=== PATIENT | female | born 1960 | race Hispanic/Latino ===

== ENCOUNTER 2022-09-05 13:23 | Inpatient (IN) | payer OTHER ==
[~2022-09-05] VITALS: Ht 149.9 cm; Wt 99.8 kg
[2022-09-05 15:38] LABS: CLARITY,URINE CLEAR (CLEAR); COLOR,URINE YELLOW (YELLOW); KETONES,URINE NEGATIVE (NEGATIVE); LEUKOCYTE ESTERASE ,URINE NEGATIVE (NEGATIVE); NITRITE,URINE NEGATIVE (NEGATIVE); PROTEIN,URINE DIPSTICK NEGATIVE (NEGATIVE); URINE UROBILINOGEN 0.2 mg/dL (0.2 - 1)
[2022-09-05 15:39] LABS: BACTERIA,URINE FEW /HPF; EPITHELIAL CELLS,URINE FEW /LPF; RBC,URINE 0-5 /HPF (0-5); WBC,URINE (MAN) 0-5 /HPF (0-5)
[2022-09-05 16:03] LABS: BASOPHILS % 1.1 % (0.0-1.0); EOSINOPHILS # (AUTO) 0.1 (0.0-0.4); EOSINOPHILS % 5.3 % (0.0-6.0); HEMATOCRIT 25.1 % (34.2-44.1); HEMOGLOBIN 7.9 g/dL (12.0-16.0); LYMPHOCYTES # (AUTO) 0.8 (1.0-3.2); LYMPHOCYTES % 31.3 % (18.0-39.1); MEAN CORPUSCULAR HEMOGLOBIN 28.6 pg (28-32); MEAN CORPUSCULAR HGB CONC 31.5 g/dL (31-35); MEAN CORPUSCULAR VOLUME 90.9 fL (81-99); MONOCYTES # (AUTO) 0.3 (0.2-0.8); MONOCYTES % 12.2 % (4.4-11.3); NEUTROPHILS # (AUTO) 1.3 (2.1-6.9); NEUTROPHILS % 49.7 % (38.7-80.0); PLATELET COUNT 141 x10e3/uL (140-360); RED BLOOD COUNT 2.76 x10e6/uL (3.6-5.1); RED CELL DISTRIBUTION WIDTH 17.6 % (11.7-14.4)
[2022-09-05 16:15] LABS: INR 1.25; PROTHROMBIN TIME 16.5 seconds (11.9-14.5)
[2022-09-05 16:17] LABS: PARTIAL THROMBOPLASTIN TIME 45.8 seconds (23.8-35.5)
[2022-09-05 16:25] LABS: ALBUMIN 3.3 g/dL (3.5-5.0); ALBUMIN/GLOBULIN RATIO 0.7 (0.8-2.0); CALCIUM 9.5 mg/dL (8.4-10.2); CREATININE, SERUM 0.75 mg/dL (0.57-1.11)
[2022-09-05] MEDS ORDERED: SODIUM CHLORIDE FLUSH 10 ML SYR INJ PRN (17:45)
[2022-09-05 18:44] VITALS: PULSE 78; RESP 20; O2SAT 99
[2022-09-06] VITALS (12 sets, daily range): BP systolic 120–151; BP diastolic 57–75; PULSE 74–114; RESP 18–20; TEMP 97.5–98.3; O2SAT 96–100
[2022-09-06] MEDS ORDERED: DEXTROSE 50% SYRINGE 50 ML IV PRN (00:15)
[2022-09-06] MEDS ORDERED: DOCUSATE SODIUM 100 MG CAP PO PRN (00:15)
[2022-09-06] MEDS ORDERED: BENZONATATE 100 MG CAP PO PRN (00:15)
[2022-09-06] MEDS ORDERED: DIPHENHYDRAMINE HCL 25 MG CAP PO PRN (00:15)
[2022-09-06] MEDS ORDERED: ALBUTEROL/IPRATROPIUM 3 ML NEB NEB PRN (00:15)
[2022-09-06] MEDS ORDERED: LIDOCAINE 4% PATCH TP PRN (00:15)
[2022-09-06] MEDS ORDERED: MELATONIN 5 MG TABLET PO PRN (00:15)
[2022-09-06] MEDS ORDERED: HYDRALAZINE HCL 20 MG/ML VIAL IV PRN (00:15)
[2022-09-06] MEDS ORDERED: SIMETHICONE 80 MG CHEW PO PRN (00:15)
[2022-09-06] MEDS ORDERED: ONDANSETRON HCL INJ 2MG/ML 2ML 2 MG/ML VIAL IV PRN (00:15)
[2022-09-06] MEDS ORDERED: POTASSIUM CHLORIDE 20 MEQ TAB CR PO PRN (00:15)
[2022-09-06] MEDS ORDERED: ACETAMINOPHEN 325 MG TAB PO PRN (00:15)
[2022-09-06] MEDS: FUROSEMIDE INJ 10 MG/ML 4 ML VIAL IV SCH ×3 (02:11→13:23)
[2022-09-06] MEDS ORDERED: SUCRALFATE1 GM PO (02:40)
[2022-09-06] MEDS ORDERED: PANTOPRAZOLE SO40 MG PO (02:42)
[2022-09-06] MEDS ORDERED: CIPRO500 MG PO (02:42)
[2022-09-06] MEDS ORDERED: NADOLOL20 MG PO (02:42)
[2022-09-06 07:53] LABS: BASOPHILS % 0.7 % (0.0-1.0); EOSINOPHILS # (AUTO) 0.2 (0.0-0.4); HEMATOCRIT 26.7 % (34.2-44.1); HEMOGLOBIN 8.5 g/dL (12.0-16.0); LYMPHOCYTES # (AUTO) 0.7 (1.0-3.2); LYMPHOCYTES % 24.4 % (18.0-39.1); MEAN CORPUSCULAR HEMOGLOBIN 28.9 pg (28-32); MEAN CORPUSCULAR HGB CONC 31.8 g/dL (31-35); MEAN CORPUSCULAR VOLUME 90.8 fL (81-99); MONOCYTES # (AUTO) 0.5 (0.2-0.8); NEUTROPHILS # (AUTO) 1.4 (2.1-6.9); NEUTROPHILS % 50.5 % (38.7-80.0); PLATELET COUNT 142 x10e3/uL (140-360); RED BLOOD COUNT 2.94 x10e6/uL (3.6-5.1); RED CELL DISTRIBUTION WIDTH 17.6 % (11.7-14.4)
[2022-09-06 08:44] LABS: ALBUMIN 3.6 g/dL (3.5-5.0); ALBUMIN/GLOBULIN RATIO 0.7 (0.8-2.0); ANION GAP 14.6 mmol/L (8-16); CALCIUM 9.6 mg/dL (8.4-10.2); CREATININE, SERUM 0.76 mg/dL (0.57-1.11); POTASSIUM 3.6 mmol/L (3.5-5.1)
[2022-09-06] MEDS: PANTOPRAZOLE SOD 40 MG TABEC PO SCH (09:44)
[2022-09-06] MEDS ORDERED: POTASSIUM CHLORIDE 20 MEQ TAB CR PO ONE (15:46)
[2022-09-06] MEDS: FUROSEMIDE INJ 100 MG in SODIUM CHLORIDE 0.9% 90 ML IV SCH (16:21)
[2022-09-06] MEDS ORDERED: SODIUM CHLORIDE 0.9% 250ML 250 ML ONE (22:18)
[2022-09-07] VITALS (10 sets, daily range): BP systolic 103–140; BP diastolic 45–62; PULSE 74–93; RESP 16–20; TEMP 97.5–98.4; O2SAT 94–100
[2022-09-07 06:33] LABS: BASOPHILS % 0.7 % (0.0-1.0); EOSINOPHILS # (AUTO) 0.2 (0.0-0.4); EOSINOPHILS % 5.5 % (0.0-6.0); HEMATOCRIT 24.8 % (34.2-44.1); HEMOGLOBIN 8.1 g/dL (12.0-16.0); LYMPHOCYTES # (AUTO) 0.7 (1.0-3.2); LYMPHOCYTES % 23.9 % (18.0-39.1); MEAN CORPUSCULAR HEMOGLOBIN 28.3 pg (28-32); MEAN CORPUSCULAR HGB CONC 32.7 g/dL (31-35); MEAN CORPUSCULAR VOLUME 86.7 fL (81-99); MONOCYTES # (AUTO) 0.5 (0.2-0.8); MONOCYTES % 17.6 % (4.4-11.3); NEUTROPHILS # (AUTO) 1.4 (2.1-6.9); NEUTROPHILS % 51.9 % (38.7-80.0); PLATELET COUNT 134 x10e3/uL (140-360); RED BLOOD COUNT 2.86 x10e6/uL (3.6-5.1); RED CELL DISTRIBUTION WIDTH 17.5 % (11.7-14.4)
[2022-09-07 06:59] LABS: ANION GAP 14.5 mmol/L (8-16); CREATININE, SERUM 0.85 mg/dL (0.57-1.11); MAGNESIUM 1.4 MG/DL (1.3-2.1); POTASSIUM 3.5 mmol/L (3.5-5.1)
[2022-09-07 07:14] LABS: FERRITIN 25.87 ng/mL (4.63-204.00)
[2022-09-07] MEDS: PANTOPRAZOLE SOD 40 MG TABEC PO SCH (10:27)
[2022-09-07] MEDS: SPIRONOLACTONE 25 MG TAB PO SCH (10:28)
[2022-09-07] MEDS: FUROSEMIDE INJ 100 MG in SODIUM CHLORIDE 0.9% 90 ML IV SCH (12:36)
[2022-09-08] VITALS (10 sets, daily range): BP systolic 107–129; BP diastolic 51–67; PULSE 79–88; RESP 16–20; TEMP 97.9–99.1; O2SAT 95–100
[2022-09-08] MEDS ORDERED: Vancomycin IV 1 GM in SODIUM CHLORIDE 0.9% 250ML 250 ML IV SCH ×2
[2022-09-08] MEDS: IRON SUCROSE 100 MG in SODIUM CHLORIDE 0.9% 100 ML IV SCH (09:02)
[2022-09-08] MEDS: PANTOPRAZOLE SOD 40 MG TABEC PO SCH (09:04)
[2022-09-08] MEDS: NADOLOL 40 MG TAB PO SCH (09:04)
[2022-09-08] MEDS: SPIRONOLACTONE 25 MG TAB PO SCH (09:04)
[2022-09-08] MEDS: FUROSEMIDE INJ 100 MG in SODIUM CHLORIDE 0.9% 90 ML IV SCH (11:00)
[2022-09-08 15:02] LABS: ANION GAP 14.7 mmol/L (8-16); CALCIUM 9.5 mg/dL (8.4-10.2); CREATININE, SERUM 1.06 mg/dL (0.57-1.11); POTASSIUM 3.7 mmol/L (3.5-5.1)
[2022-09-08] MEDS ORDERED: ONDANSETRON HCL 4 MG ORAL DISINTEGRATING TAB PO PRN (18:15)
[2022-09-09 01:24] VITALS: BP 125/55; PULSE 84; RESP 16; TEMP 98.4; O2SAT 95
[2022-09-09 05:46] VITALS: BP 121/55; PULSE 92; RESP 15; TEMP 98.9; O2SAT 100
[2022-09-09 06:36] VITALS: PULSE 97; RESP 18; O2SAT 97
[2022-09-09 08:16] VITALS: BP 123/53; PULSE 89; RESP 16; TEMP 99.2; O2SAT 100
[2022-09-09] MEDS ORDERED: FUROSEMIDE 40 MG TAB PO ONE (09:00)
[2022-09-09] MEDS: PANTOPRAZOLE SOD 40 MG TABEC PO SCH (09:27)
[2022-09-09] MEDS: NADOLOL 40 MG TAB PO SCH (09:29)
[2022-09-09] MEDS: SPIRONOLACTONE 25 MG TAB PO SCH (09:30)
[2022-09-09] MEDS: IRON SUCROSE 100 MG in SODIUM CHLORIDE 0.9% 100 ML IV SCH (09:33)
[2022-09-09 12:58] VITALS: BP 128/67; PULSE 72; RESP 16; TEMP 98.5; O2SAT 97
== END 2022-09-09 18:57 | disposition home or self-care (01) | DRG 433 ==
LOC: ER 13:41 → ERHOLD 17:50 → MED/SURG2 09-06 00:19
PROVIDERS: ADMIT Internal Medicine; ATTEND Internal Medicine
DX: K74.60 Unspecified cirrhosis of liver (principal); D61.818 Other pancytopenia; I85.00 Esophageal varices without bleeding; L03.311 Cellulitis of abdominal wall; R18.8 Other ascites; Z68.42 Body mass index [BMI] 45.0-49.9, adult; K72.10 Chronic hepatic failure without coma; R53.81 Other malaise; E87.70 Fluid overload, unspecified; K75.81 Nonalcoholic steatohepatitis (NASH); D69.6 Thrombocytopenia, unspecified; E66.01 Morbid (severe) obesity due to excess calories; Z20.822 Contact with and (suspected) exposure to COVID-19
CPT/HCPCS: 36415; 71045; 74176; 76700; 80048; 80053; 81001; 82140; 82550; 82607; 82728; 82746; 83540; 83605; 83735; 84466; 84484; 85025; 85045; 85610; 85730; 87040; 87086; 93005; 94799; 99284; J1756; J1940; J2543; J7050